=== PATIENT | male | born 1940 | race Caucasian/White ===

== ENCOUNTER 2019-06-16 07:35 | Observation (INO) | payer MEDICARE, BC ==
[2019-06-16] MEDS ORDERED: Sodium Chloride 0.9% 10 ML Syringe FLUSH PRN (07:45)
[2019-06-16] MEDS ORDERED: Sodium Chloride 0.9% 2.5 ML Syringe FLUSH PRN (07:45)
[2019-06-16] MEDS ORDERED: Aspirin 81 MG Tab.Chew PO ONE (07:49)
--- NOTE | 2019-06-16 07:49 | EDM.PDOC ---
ED HPI GENERAL MEDICAL PROBLEM - General Chief Complaint: Cardiovascular Problem Stated Complaint: POSSIBLE HEART ATTACK Time Seen by Provider: 06/16/19 07:39 Source of Information: Reports: Patient History Limitations: Reports: No Limitations - History of Present Illness INITIAL COMMENTS - FREE TEXT/NARRATIVE: History of present illness: []Patient has a history of an AZ 2 years ago with one stent placed in [place] this morning while sitting at the breakfast table sipping coffee with friends patient became sweaty and nauseous which is how he presented with his AZ 2 years ago. Review of systems: As per history of present illness and below otherwise all systems reviewed and negative. Past medical history: As per history of present illness and as reviewed below otherwise noncontributory. Surgical history: As per history of present illness and as reviewed below otherwise noncontributory. Social history: No reported history of drug or alcohol abuse. Family history: As per history of present illness and as reviewed below otherwise noncontributory. Physical exam: General: Well developed, well nourished in NAD HEENT: Atraumatic, normocephalic, pupils reactive, negative for conjunctival pallor or scleral icterus, mucous membranes moist, throat clear, neck supple, nontender, trachea midline. Lungs: Clear to auscultation, breath sounds equal bilaterally, chest nontender. Heart: S1S2, regular, negative for clicks, rubs, or JVD. Abdomen: NABS, Soft, nondistended, nontender. Negative for masses or hepatosplenomegaly. Negative for costovertebral tenderness. Pelvis: Stable nontender. Genitourinary: Deferred. Rectal: Deferred. Extremities: Atraumatic, negative for cords or calf pain. Neurovascular unremarkable. Neuro: Awake, alert, oriented. Cranial nerves II through XII unremarkable. Cerebellum unremarkable. Motor and sensory unremarkable throughout. Exam nonfocal. Skin:warm and dry Diagnostics: EKG, chest x-ray, CBC, chemistry, troponin Therapeutics: Aspirin given prior to arrival ED Course: Stable consulted hospitalist who will admit Impression: acute coronary syndrome Prescriptions: none Plan: Mid to hospitalist service rule out AZ actually Definitive disposition and diagnosis as appropriate pending reevaluation and review of above. chest Pain Score (Numeric/FACES): 0 - Related Data Allergies Allergy/AdvReac Type Severity Reaction Status Date / Time codeine Allergy Nausea Verified 06/16/19 10:58 wheat Allergy Other Verified 06/16/19 10:58 pain medications Allergy Confusion Uncoded 06/16/19 10:58 Home Meds: Home Meds Aspirin 81 mg PO DAILY 06/16/19 [History] Esomeprazole Magnesium [Nexium 24Hr] 20 mg PO DAILY 06/16/19 [History] Losartan Potassium 25 mg PO DAILY 06/16/19 [History] atorvaSTATin [Lipitor] 40 mg PO BEDTIME 06/16/19 [History] ED ROS GENERAL - Review of Systems Review Of Systems: See Below ED EXAM, GENERAL - Physical Exam Exam: See Below Course - Vital Signs Last Recorded V/S: Last Vital Signs Temp 98.9 F 06/16/19 12:00 Pulse 62 06/16/19 12:00 Resp 16 06/16/19 12:00 BP 107/63 06/16/19 12:00 Pulse Ox 98 06/16/19 12:00 - Orders/Labs/Meds Orders: Active Orders 24 hr Category Date Time Status Patient Status [ADT] Stat ADT 06/16/19 08:29 Active Cardiac Monitoring [RC] . DIRECTED Care 06/16/19 07:45 Active EKG Documentation Completion [RC] STAT Care 06/16/19 07:45 Active Sodium Chloride 0.9% [Saline Flush] Med 06/16/19 07:45 Active 10 ml FLUSH ASDIRECTED PRN Sodium Chloride 0.9% [Saline Flush] Med 06/16/19 07:45 Active 2.5 ml FLUSH ASDIRECTED PRN Saline Lock Insert [OM.PC] Stat Oth 06/16/19 07:45 Ordered Medication Orders Acetaminophen (Tylenol) 650 mg PO Q4H PRN PRN Reason: Pain/Fever Aspirin (Aspirin) 81 mg PO DAILY LIANA Atorvastatin Calcium (Lipitor) 40 mg PO BEDTIME LIANA Enoxaparin Sodium (Lovenox) 40 mg SUBCUT Q24H LIANA Last Admin: 06/16/19 11:14 Dose: 40 mg Sodium Chloride (Normal Saline) 1,000 mls @ 125 mls/hr IV ASDIRECTED LIANA Stop: 06/16/19 17:14 Last Admin: 06/16/19 11:13 Dose: 125 mls/hr Losartan Potassium (Cozaar) 25 mg PO DAILY LIANA Ondansetron HCl (Zofran) 4 mg IVPUSH Q4H PRN PRN Reason: Nausea/Vomiting Sodium Chloride (Saline Flush) 10 ml FLUSH ASDIRECTED PRN PRN Reason: Keep Vein Open Sodium Chloride (Saline Flush) 2.5 ml FLUSH ASDIRECTED PRN PRN Reason: Keep Vein Open Labs: Laboratory Tests 06/16/19 06/16/19 Range/Units 07:52 07:52 WBC 7.98 (4.0-11.0) K/uL RBC 4.18 L (4.50-5.90) M/uL Hgb 14.1 (13.0-17.0) g/dL Hct 41.5 (38.0-50.0) % MCV 99.3 H (80.0-98.0) fL MCH 33.7 H (27.0-32.0) pg MCHC 34.0 (31.0-37.0) g/dL RDW Std Deviation 46.8 (28.0-62.0) fl RDW Coeff of Adama 13 (11.0-15.0) % Plt Count 176 (150-400) K/uL MPV 9.50 (7.40-12.00) fL Neut % (Auto) 85.8 H (48.0-80.0) % Lymph % (Auto) 8.3 L (16.0-40.0) % [place] % (Auto) 5.5 (0.0-15.0) % Eos % (Auto) 0.3 (0.0-7.0) % Baso % (Auto) 0.1 (0.0-1.5) % Neut # (Auto) 6.9 H (1.4-5.7) K/uL Lymph # (Auto) 0.7 (0.6-2.4) K/uL [place] # (Auto) 0.4 (0.0-0.8) K/uL Eos # (Auto) 0.0 (0.0-0.7) K/uL Baso # (Auto) 0.0 (0.0-0.1) K/uL Nucleated RBC % 0.0 /100WBC Nucleated RBCs # 0 K/uL Sodium 133 L (136-148) mmol/L Potassium 4.1 (3.5-5.1) mmol/L Chloride 100 (98-107) mmol/L Carbon Dioxide 27.4 (21.0-32.0) mmol/L BUN 14 (7.0-18.0) mg/dL Creatinine 0.9 (0.8-1.3) mg/dL Est Cr Clr Drug Dosing 56.17 mL/min Estimated GFR (MDRD) > 60.0 ml/min Glucose 123 H (74-106) mg/dL Calcium 10.5 H (8.5-10.1) mg/dL Total Bilirubin 1.2 H (0.2-1.0) mg/dL AST 25 (15-37) IU/L ALT 30 (14-63) IU/L Alkaline Phosphatase 64 (46-116) U/L Troponin I < 0.050 (0.000-0.056) ng/mL Total Protein 6.4 (6.4-8.2) g/dL Albumin 3.6 (3.4-5.0) g/dL Globulin 2.8 (2.6-4.0) g/dL Albumin/Globulin Ratio 1.3 (0.9-1.6) Meds: Medications Generic Name Dose Route Start Last Admin Trade Name Freq PRN Reason Stop Dose Admin Acetaminophen 650 mg 06/16/19 09:04 Tylenol PO Q4H PRN Pain/Fever Aspirin 81 mg 06/17/19 09:00 Aspirin PO DAILY [facility] Atorvastatin Calcium 40 mg 06/16/19 21:00 Lipitor PO BEDTIME [facility] Enoxaparin Sodium 40 mg 06/16/19 11:00 06/16/19 11:14 Lovenox SUBCUT 40 mg Q24H LIANA Administration Sodium Chloride 1,000 mls @ 125 mls/hr 06/16/19 09:15 06/16/19 11:13 Normal Saline IV 06/16/19 17:14 125 mls/hr ASDIRECTED LIANA Administration Losartan Potassium 25 mg 06/17/19 21:00 Cozaar PO DAILY [facility] Ondansetron HCl 4 mg 06/16/19 09:04 Zofran IVPUSH Q4H PRN Nausea/Vomiting Sodium Chloride 10 ml 06/16/19 07:45 Saline Flush FLUSH ASDIRECTED PRN Keep Vein Open Sodium Chloride 2.5 ml 06/16/19 07:45 Saline Flush FLUSH ASDIRECTED PRN Keep Vein Open Discontinued Medications Generic Name Dose Route Start Last Admin Trade Name Freq PRN Reason Stop Dose Admin Aspirin 324 mg 06/16/19 07:49 06/16/19 07:57 Aspirin PO 06/16/19 07:50 Not Given ONETIME ONE Enoxaparin Sodium 40 mg 06/16/19 09:00 06/16/19 11:05 Lovenox SUBCUT Not Given Q24H [facility] Omeprazole 20 mg 06/18/19 09:00 Omeprazole PO DAILY LIANA Departure - Departure Time of Disposition: 16:58 Disposition: Refer to Observation Condition: Good Clinical Impression: Acute coronary syndrome - My Orders Last 24 Hours: My Active Orders 06/16/19 07:45 Cardiac Monitoring [RC] . DIRECTED EKG Documentation Completion [RC] STAT Sodium Chloride 0.9% [Saline Flush] 10 ml FLUSH ASDIRECTED PRN Sodium Chloride 0.9% [Saline Flush] 2.5 ml FLUSH ASDIRECTED PRN Saline Lock Insert [OM.PC] Stat 06/16/19 08:29 Patient Status [ADT] Stat - Assessment/Plan Last 24 Hours: My Active Orders 06/16/19 07:45 Cardiac Monitoring [RC] . DIRECTED EKG Documentation Completion [RC] STAT Sodium Chloride 0.9% [Saline Flush] 10 ml FLUSH ASDIRECTED PRN Sodium Chloride 0.9% [Saline Flush] 2.5 ml FLUSH ASDIRECTED PRN Saline Lock Insert [OM.PC] Stat 06/16/19 08:29 Patient Status [ADT] Stat
[2019-06-16 08:24] LABS: BLOOD UREA NITROGEN,BUN 14 mg/dL (7.0-18.0); CARBON DIOXIDE,CO2 27.4 mmol/L (21.0-32.0); CHLORIDE,CL 100 mmol/L (98-107); GLUCOSE RANDOM 123 mg/dL (74-106); POTASSIUM,K 4.1 mmol/L (3.5-5.1); SODIUM,NA 133 mmol/L (136-148)
--- NOTE | 2019-06-16 08:53 | CR ---
INDICATION: Pain, shortness of breath. TECHNIQUE: Chest 1 view COMPARISON: None. FINDINGS: The extreme lung apices are obscured by artifact. Within these limitations, no focal consolidation, pleural effusion, or pneumothorax is seen. Normal heart size and pulmonary vascularity. Tortuous aorta. IMPRESSION: No acute cardiopulmonary findings. Dictated by Gabriella Bella MD @ Jun 16 2019 8:49AM Signed by Dr. Gabriella Bella @ Jun 16 2019 8:50AM
--- NOTE | 2019-06-16 08:59 | PCM.HP.2 ---
H&P History of Present Illness - General Date of Service: 06/16/19 Admit Problem/Dx: Admission Diagnosis/Problem Admission Diagnosis/Problem Chest pain - History of Present Illness Initial Comments - Free Text/Narative: The patient is a 79 year old male who presents today with episode of diaphoresis and nausea while eating breakfast with friends. He reports NH with stent 2 years ago that presented with the same symptoms. He denies chest pain, shortness of breath, abdominal pain, diarrhea, or edema. He no longer feels diaphoretic or nauseous. Last appt with cardiology was in [place] in December. No changes were made to his management at that time. He reports he has never had a stress test. He is a non smoker. He has a positive cardiac history, father had first NH at age 56 and from it at 72. mother from NH at 83. In the ER, work up showed no white count, anemia. He was slightly hyponatremic with normal kidney function. Initial trop was negative. CXR showed no acute cardiopulmonary process. EKG showed normal sinus rhythm without ST elevation. He was given full dose aspirin in the ER. PCP- Dr. Hidalgo - Related Data Allergies/Adverse Reactions: Allergies Allergy/AdvReac Type Severity Reaction Status Date / Time codeine Allergy Nausea Verified 06/16/19 10:58 wheat Allergy Other Verified 06/16/19 10:58 pain medications Allergy Confusion Uncoded 06/16/19 10:58 Home Medications: Home Meds Aspirin 81 mg PO DAILY 06/16/19 [History] Esomeprazole Magnesium [Nexium 24Hr] 20 mg PO DAILY 06/16/19 [History] Losartan Potassium 25 mg PO DAILY 06/16/19 [History] atorvaSTATin [Lipitor] 40 mg PO BEDTIME 06/16/19 [History] Past Medical History HEENT History: Reports: Hard of Hearing Other HEENT History: hearing aids Cardiovascular History: Reports: NH Other Cardiovascular History: NH with stents in 2017 Respiratory History: Reports: None Gastrointestinal History: Reports: GERD Genitourinary History: Reports: None Musculoskeletal History: Reports: None Psychiatric History: Reports: None Endocrine/Metabolic History: Reports: None Hematologic History: Reports: None Immunologic History: Reports: None - Infectious Disease History Infectious Disease History: Reports: Chicken Pox, Measles, Mumps - Past Surgical History Cardiovascular Surgical History: Reports: Coronary Artery Stent GI Surgical History: Reports: Hernia Repair/Other Social & Family History - Family History Family Medical History: Noncontributory - Tobacco Use Smoking Status *Q: Never Smoker Second Hand Smoke Exposure: No - Alcohol Use Days Per Week of Alcohol Use: 7 Number of Drinks Per Day: 2 Total Drinks Per Week: 14 - Recreational Drug Use Recreational Drug Use: No H&P Review of Systems - Review of Systems: Review Of Systems: See Below General: Reports: Diaphoresis. Denies: Fever, Chills HEENT: Reports: No Symptoms Pulmonary: Reports: No Symptoms Cardiovascular: Reports: No Symptoms Gastrointestinal: Reports: Nausea. Denies: Abdominal Pain, Constipation, Diarrhea, Vomiting Genitourinary: Reports: No Symptoms Musculoskeletal: Reports: No Symptoms Skin: Reports: No Symptoms Psychiatric: Reports: No Symptoms Neurological: Reports: No Symptoms Hematologic/Lymphatic: Reports: No Symptoms Immunologic: Reports: No Symptoms Exam - Exam Exam: See Below - Vital Signs Vital Signs: Last Vital Signs Temp 97.1 F 06/16/19 07:35 Pulse 51 L 06/16/19 08:44 Resp 18 06/16/19 08:44 BP 134/61 06/16/19 08:44 Pulse Ox 100 06/16/19 08:44 Weight: 61.689 kg - Exam General: Alert, Oriented, Cooperative HEENT: Conjunctiva Clear, EOMI, Mucosa Moist & [place], Posterior Pharynx Clear, Pupils Equal, Pupils Reactive Neck: Supple, Trachea Midline Lungs: Clear to Auscultation, Normal Respiratory Effort Cardiovascular: Regular Rate, Regular Rhythm GI/Abdominal Exam: Normal Bowel Sounds, Soft, Non-Tender, No Distention Extremities: No Pedal Edema Skin: Warm, Dry, Intact Psychiatric: Alert, Normal Affect, Normal Mood - Patient Data Lab Results Last 24 hrs: Laboratory Results - last 24 hr 06/16/19 06/16/19 Range/Units 07:52 07:52 WBC 7.98 (4.0-11.0) K/uL RBC 4.18 L (4.50-5.90) M/uL Hgb 14.1 (13.0-17.0) g/dL Hct 41.5 (38.0-50.0) % MCV 99.3 H (80.0-98.0) fL MCH 33.7 H (27.0-32.0) pg MCHC 34.0 (31.0-37.0) g/dL RDW Std Deviation 46.8 (28.0-62.0) fl RDW Coeff of Adama 13 (11.0-15.0) % Plt Count 176 (150-400) K/uL MPV 9.50 (7.40-12.00) fL Neut % (Auto) 85.8 H (48.0-80.0) % Lymph % (Auto) 8.3 L (16.0-40.0) % [place] % (Auto) 5.5 (0.0-15.0) % Eos % (Auto) 0.3 (0.0-7.0) % Baso % (Auto) 0.1 (0.0-1.5) % Neut # (Auto) 6.9 H (1.4-5.7) K/uL Lymph # (Auto) 0.7 (0.6-2.4) K/uL [place] # (Auto) 0.4 (0.0-0.8) K/uL Eos # (Auto) 0.0 (0.0-0.7) K/uL Baso # (Auto) 0.0 (0.0-0.1) K/uL Nucleated RBC % 0.0 /100WBC Nucleated RBCs # 0 K/uL Sodium 133 L (136-148) mmol/L Potassium 4.1 (3.5-5.1) mmol/L Chloride 100 (98-107) mmol/L Carbon Dioxide 27.4 (21.0-32.0) mmol/L BUN 14 (7.0-18.0) mg/dL Creatinine 0.9 (0.8-1.3) mg/dL Est Cr Clr Drug Dosing 56.17 mL/min Estimated GFR (MDRD) > 60.0 ml/min Glucose 123 H (74-106) mg/dL Calcium 10.5 H (8.5-10.1) mg/dL Total Bilirubin 1.2 H (0.2-1.0) mg/dL AST 25 (15-37) IU/L ALT 30 (14-63) IU/L Alkaline Phosphatase 64 (46-116) U/L Troponin I < 0.050 (0.000-0.056) ng/mL Total Protein 6.4 (6.4-8.2) g/dL Albumin 3.6 (3.4-5.0) g/dL Globulin 2.8 (2.6-4.0) g/dL Albumin/Globulin Ratio 1.3 (0.9-1.6) Result Diagrams: 06/16/19 07:52 06/16/19 07:52 Problem List Initiated/Reviewed/Updated: Yes Orders Last 24hrs: Active Orders 24 hr Category Date Time Status Patient Status [ADT] Stat ADT 06/16/19 08:29 Ordered Cardiac Monitoring [RC] . DIRECTED Care 06/16/19 07:45 Active EKG Documentation Completion [RC] STAT Care 06/16/19 07:45 Active Intake and Output [RC] ASDIRECTED Care 06/16/19 08:52 Ordered Oxygen Therapy, ED [RC] ASDIRECTED Care 06/16/19 07:45 Active Telemetry Monitoring [Cardiac Monitoring] [RC] . Care 06/16/19 08:52 Ordered DIRECTED Vital Signs [RC] PER UNIT ROUTINE Care 06/16/19 08:52 Ordered Heart Healthy Diet [DIET] Diet 06/16/19 Lunch Ordered TROPONIN I [CHEM] Timed Lab 06/16/19 14:00 Ordered TROPONIN I [CHEM] Timed Lab 06/16/19 20:00 Ordered Enoxaparin [Lovenox] Med 06/16/19 09:00 Ordered 40 mg SUBCUT Q24H Sodium Chloride 0.9% [Saline Flush] Med 06/16/19 07:45 Active 10 ml FLUSH ASDIRECTED PRN Sodium Chloride 0.9% [Saline Flush] Med 06/16/19 07:45 Active 2.5 ml FLUSH ASDIRECTED PRN Saline Lock Insert [OM.PC] Stat Oth 06/16/19 07:45 Ordered Resuscitation Status Stat Resus Stat 06/16/19 08:52 Ordered Medication Orders Enoxaparin Sodium (Lovenox) 40 mg SUBCUT Q24H LIANA Sodium Chloride (Saline Flush) 10 ml FLUSH ASDIRECTED PRN PRN Reason: Keep Vein Open Sodium Chloride (Saline Flush) 2.5 ml FLUSH ASDIRECTED PRN PRN Reason: Keep Vein Open Assessment/Plan Comment:: 1. Admit for observation 2. Code status- Full 3. Vitals per routine 4. I/Os per routine 5. Diet- heart healthy 6. DVT prophylaxis with Lovenox 7. Diaphoresis and nausea in patient with hx of NH- trend troponins, monitor on telemetry, continue home medications 8. Hyponatremia- give 1 L of IVF, recheck in AM 9. Bradycardia- monitor on telemetry, not on any medications that would slow his heart. Reviewed PCP records and his HR runs 50-60.
[2019-06-16] MEDS ORDERED: Enoxaparin 40 MG/0.4 ML Syringe SUBCUT SCH (09:00)
[2019-06-16] MEDS ORDERED: Ondansetron 4 MG/2 ML SDV IVPUSH PRN (09:04)
[2019-06-16] MEDS ORDERED: Acetaminophen 325 MG Tab PO PRN (09:04)
[2019-06-16] MEDS ORDERED: Sodium Chloride 0.9% 1,000 ML IV SCH (09:15)
[2019-06-16] MEDS: Enoxaparin 40 MG/0.4 ML Syringe SUBCUT SCH (11:14)
[2019-06-16] MEDS ORDERED: atorvaSTATin 40 MG Tab PO SCH (21:00)
[2019-06-17 06:44] LABS: BLOOD UREA NITROGEN,BUN 12 mg/dL (7.0-18.0); CARBON DIOXIDE,CO2 26.3 mmol/L (21.0-32.0); CHLORIDE,CL 104 mmol/L (98-107); GLUCOSE RANDOM 101 mg/dL (74-106); POTASSIUM,K 4.6 mmol/L (3.5-5.1); SODIUM,NA 138 mmol/L (136-148)
--- NOTE | 2019-06-17 07:44 | PCM.DCSUM1 ---
<Ana Paula Lin - Last Filed: 06/17/19 10:36> Discharge Summary - Hospital Course HPI Initial Comments: Admission Date: 06/16/19 Discharge Date: 06/17/19 Admission Diagnosis: 1. Diaphoresis/nausea with hx of SD 2. Bradycardia 3. Hyponatremia Discharge Diagnosis: 1. Diaphoresis/nausea with hx of SD- resolved 2. Bradycardia- stable 3. Hyponatremia- resolved Procedures: None Consults: None Hospital Course: The patient is a 79 year old male who presents today with episode of diaphoresis and nausea while eating breakfast with friends. He reports SD with stent 2 years ago that presented with the same symptoms. He denies chest pain, shortness of breath, abdominal pain, diarrhea, or edema. He no longer feels diaphoretic or nauseous. Last appt with cardiology was in [place] in December. No changes were made to his management at that time. He reports he has never had a stress test. In the ER, work up showed no white count , anemia. He was slightly hyponatremic with normal kidney function. Initial trop was negative. CXR showed no acute cardiopulmonary process. EKG showed normal sinus rhythm without ST elevation. He was given full dose aspirin in the ER. Was admitted to medical surgical consult. His troponin were trended and negative x 3 with no further episodes of his symptoms or chest pain. Monitored on telemetry and he remained in sinus rhythm and sinus bradycardia which is his normal state. He was given 1 L of fluid and his hyponatremia resolved. By day of discharge patient stated he felt good and was ready to go home. Disposition: Home Discharge Condition: vitals stable, tolerating oral diet, ambulating without difficulty, symptom improvement Discharge Instructions: heart healthy diet as tolerated, activity as tolerated, take medications as prescribed. Symptoms to report to physician include fever/ chills, chest pain, shortness of breath, abdominal pain, erythema, drainage/ discharge, or not improving as expected. Discharge Medications: Aspirin 81 mg PO DAILY Esomeprazole Magnesium [Nexium 24Hr] 20 mg PO DAILY Losartan Potassium 25 mg PO DAILY atorvaSTATin [Lipitor] 40 mg PO BEDTIME Follow-up: 1. PCP- Dr. Hidalgo 2. Cardiology- Dr. Borrego 3. Outpatient stress test - Discharge Data Discharge Date: 06/17/19 Discharge Disposition: Home, Self-Care 01 Condition: Stable - Referral to Home Health Primary Care Physician: PCP None - Discharge Plan Home Medications: Home Meds Aspirin 81 mg PO DAILY 06/16/19 [History] Esomeprazole Magnesium [Nexium 24Hr] 20 mg PO DAILY 06/16/19 [History] Losartan Potassium 25 mg PO DAILY 06/16/19 [History] atorvaSTATin [Lipitor] 40 mg PO BEDTIME 06/16/19 [History] Patient Handouts: Acute Coronary Syndrome Referrals: Babar Swanson MD [Physician] - 07/21/19 1:00 pm Fransico Hidalgo MD [Physician] - 07/02/19 11:15 am - Discharge Summary/Plan Comment DC Time >30 min.: No - Patient Data Vitals - Most Recent: Last Vital Signs Temp 98.2 F 06/17/19 07:42 Pulse 52 L 06/17/19 07:42 Resp 16 06/17/19 07:42 BP 127/60 06/17/19 07:42 Pulse Ox 97 06/17/19 07:42 Weight - Most Recent: 61.689 kg I&O - Last 24 hours: Intake & Output 06/16/19 06/17/19 06/17/19 22:59 06:59 14:59 Intake Total 1350 1090 Output Total 850 1250 Balance 500 -160 Lab Results - Last 24 hrs: Laboratory Results - last 24 hr 06/16/19 06/16/19 06/16/19 Range/Units 07:52 07:52 14:00 WBC 7.98 (4.0-11.0) K/uL RBC 4.18 L (4.50-5.90) M/uL Hgb 14.1 (13.0-17.0) g/dL Hct 41.5 (38.0-50.0) % MCV 99.3 H (80.0-98.0) fL MCH 33.7 H (27.0-32.0) pg MCHC 34.0 (31.0-37.0) g/dL RDW Std Deviation 46.8 (28.0-62.0) fl RDW Coeff of Adama 13 (11.0-15.0) % Plt Count 176 (150-400) K/uL MPV 9.50 (7.40-12.00) fL Neut % (Auto) 85.8 H (48.0-80.0) % Lymph % (Auto) 8.3 L (16.0-40.0) % [place] % (Auto) 5.5 (0.0-15.0) % Eos % (Auto) 0.3 (0.0-7.0) % Baso % (Auto) 0.1 (0.0-1.5) % Neut # (Auto) 6.9 H (1.4-5.7) K/uL Lymph # (Auto) 0.7 (0.6-2.4) K/uL [place] # (Auto) 0.4 (0.0-0.8) K/uL Eos # (Auto) 0.0 (0.0-0.7) K/uL Baso # (Auto) 0.0 (0.0-0.1) K/uL Nucleated RBC % 0.0 /100WBC Nucleated RBCs # 0 K/uL Sodium 133 L (136-148) mmol/L Potassium 4.1 (3.5-5.1) mmol/L Chloride 100 (98-107) mmol/L Carbon Dioxide 27.4 (21.0-32.0) mmol/L BUN 14 (7.0-18.0) mg/dL Creatinine 0.9 (0.8-1.3) mg/dL Est Cr Clr Drug Dosing 56.17 mL/min Estimated GFR (MDRD) > 60.0 ml/min Glucose 123 H (74-106) mg/dL Calcium 10.5 H (8.5-10.1) mg/dL Total Bilirubin 1.2 H (0.2-1.0) mg/dL AST 25 (15-37) IU/L ALT 30 (14-63) IU/L Alkaline Phosphatase 64 (46-116) U/L Troponin I < 0.050 < 0.050 (0.000-0.056) ng/mL Total Protein 6.4 (6.4-8.2) g/dL Albumin 3.6 (3.4-5.0) g/dL Globulin 2.8 (2.6-4.0) g/dL Albumin/Globulin Ratio 1.3 (0.9-1.6) 06/16/19 06/17/19 06/17/19 Range/Units 20:09 05:58 05:58 WBC 6.00 (4.0-11.0) K/uL RBC 4.10 L (4.50-5.90) M/uL Hgb 13.4 (13.0-17.0) g/dL Hct 41.0 (38.0-50.0) % MCV 100.0 H (80.0-98.0) fL MCH 32.7 H (27.0-32.0) pg MCHC 32.7 (31.0-37.0) g/dL RDW Std Deviation 47.4 (28.0-62.0) fl RDW Coeff of Adama 13 (11.0-15.0) % Plt Count 154 (150-400) K/uL MPV 9.40 (7.40-12.00) fL Neut % (Auto) 67.8 (48.0-80.0) % Lymph % (Auto) 21.2 (16.0-40.0) % [place] % (Auto) 9.7 (0.0-15.0) % Eos % (Auto) 1.0 (0.0-7.0) % Baso % (Auto) 0.3 (0.0-1.5) % Neut # (Auto) 4.1 (1.4-5.7) K/uL Lymph # (Auto) 1.3 (0.6-2.4) K/uL [place] # (Auto) 0.6 (0.0-0.8) K/uL Eos # (Auto) 0.1 (0.0-0.7) K/uL Baso # (Auto) 0.0 (0.0-0.1) K/uL Nucleated RBC % 0.0 /100WBC Nucleated RBCs # 0 K/uL Sodium 138 (136-148) mmol/L Potassium 4.6 (3.5-5.1) mmol/L Chloride 104 (98-107) mmol/L Carbon Dioxide 26.3 (21.0-32.0) mmol/L BUN 12 (7.0-18.0) mg/dL Creatinine 1.0 (0.8-1.3) mg/dL Est Cr Clr Drug Dosing 50.55 mL/min Estimated GFR (MDRD) > 60.0 ml/min Glucose 101 (74-106) mg/dL Calcium 9.1 (8.5-10.1) mg/dL Total Bilirubin (0.2-1.0) mg/dL AST (15-37) IU/L ALT (14-63) IU/L Alkaline Phosphatase (46-116) U/L Troponin I < 0.050 (0.000-0.056) ng/mL Total Protein (6.4-8.2) g/dL Albumin (3.4-5.0) g/dL Globulin (2.6-4.0) g/dL Albumin/Globulin Ratio (0.9-1.6) Med Orders - Current: Current Medications Acetaminophen (Tylenol) 650 mg PO Q4H PRN PRN Reason: Pain/Fever Aspirin (Aspirin) 81 mg PO DAILY [facility] Atorvastatin Calcium (Lipitor) 40 mg PO BEDTIME [facility] Last Admin: 06/16/19 20:32 Dose: 40 mg Enoxaparin Sodium (Lovenox) 40 mg SUBCUT Q24H [facility] Last Admin: 06/16/19 11:14 Dose: 40 mg Losartan Potassium (Cozaar) 25 mg PO DAILY [facility] Ondansetron HCl (Zofran) 4 mg IVPUSH Q4H PRN PRN Reason: Nausea/Vomiting Esomeprazole 20mg 1 each PO DAILY [facility] Last Admin: 06/16/19 17:39 Dose: 1 each Sodium Chloride (Saline Flush) 10 ml FLUSH ASDIRECTED PRN PRN Reason: Keep Vein Open Sodium Chloride (Saline Flush) 2.5 ml FLUSH ASDIRECTED PRN PRN Reason: Keep Vein Open Discontinued Medications Aspirin (Aspirin) 324 mg PO ONETIME ONE Stop: 06/16/19 07:50 Last Admin: 06/16/19 07:57 Dose: Not Given Enoxaparin Sodium (Lovenox) 40 mg SUBCUT Q24H [facility] Last Admin: 06/16/19 11:05 Dose: Not Given Sodium Chloride (Normal Saline) 1,000 mls @ 125 mls/hr IV ASDIRECTED [facility] Stop: 06/16/19 17:14 Last Admin: 06/16/19 11:13 Dose: 125 mls/hr Omeprazole (Omeprazole) 20 mg PO DAILY [facility] <Eliel Stanley - Last Filed: 06/18/19 18:56> Discharge Summary - Referral to Home Health Primary Care Physician: PCP None - Patient Data Vitals - Most Recent: Last Vital Signs Temp 36.5 C 06/17/19 12:00 Pulse 78 06/17/19 12:00 Resp 16 06/17/19 12:00 BP 126/66 06/17/19 12:00 Pulse Ox 96 06/17/19 12:00 Med Orders - Current: Current Medications Discontinued Medications Acetaminophen (Tylenol) 650 mg PO Q4H PRN PRN Reason: Pain/Fever Aspirin (Aspirin) 324 mg PO ONETIME ONE Stop: 06/16/19 07:50 Last Admin: 06/16/19 07:57 Dose: Not Given Aspirin (Aspirin) 81 mg PO DAILY [facility] Last Admin: 06/17/19 09:30 Dose: 81 mg Atorvastatin Calcium (Lipitor) 40 mg PO BEDTIME [facility] Last Admin: 06/16/19 20:32 Dose: 40 mg Enoxaparin Sodium (Lovenox) 40 mg SUBCUT Q24H [facility] Last Admin: 06/16/19 11:05 Dose: Not Given Enoxaparin Sodium (Lovenox) 40 mg SUBCUT Q24H [facility] Last Admin: 06/17/19 12:23 Dose: Not Given Sodium Chloride (Normal Saline) 1,000 mls @ 125 mls/hr IV ASDIRECTED [facility] Stop: 06/16/19 17:14 Last Admin: 06/16/19 11:13 Dose: 125 mls/hr Losartan Potassium (Cozaar) 25 mg PO DAILY [facility] Omeprazole (Omeprazole) 20 mg PO DAILY [facility] Ondansetron HCl (Zofran) 4 mg IVPUSH Q4H PRN PRN Reason: Nausea/Vomiting Esomeprazole 20mg 1 each PO DAILY [facility] Last Admin: 06/17/19 09:30 Dose: 1 each Sodium Chloride (Saline Flush) 10 ml FLUSH ASDIRECTED PRN PRN Reason: Keep Vein Open Sodium Chloride (Saline Flush) 2.5 ml FLUSH ASDIRECTED PRN PRN Reason: Keep Vein Open - Free Text/Narrative Note: I have seen and evaluated the patient with the resident. I have discussed findings and treatment plan with the resident. I agree with the assessment and plan outlined in the following note.
[2019-06-17] MEDS ORDERED: Aspirin 81 MG Tab.Chew PO SCH (09:00)
[2019-06-17] MEDS: Enoxaparin 40 MG/0.4 ML Syringe SUBCUT SCH (12:23)
[2019-06-17] MEDS ORDERED: Losartan 50 MG Tab PO SCH (21:00)
[2019-06-18] MEDS ORDERED: Omeprazole 20 MG Cap.CR PO SCH (09:00)
== END 2019-06-17 11:59 | disposition home or self-care (01) ==
LOC: MW.ED 07:35 → MW.MS 08:40
PROVIDERS: ADMIT Internal Medicine; ATTEND Internal Medicine
DX: R61 Generalized hyperhidrosis (principal); R11.0 Nausea; I25.2 Old myocardial infarction; K21.9 Gastro-esophageal reflux disease without esophagitis; E87.1 Hypo-osmolality and hyponatremia; R00.1 Bradycardia, unspecified; Z88.5 Allergy status to narcotic agent; Z91.018 Allergy to other foods; Z88.8 Allergy status to other drugs, medicaments and biological substances; Z79.82 Long term (current) use of aspirin; Z79.899 Other long term (current) drug therapy
CPT/HCPCS: 36415; 71045; 80048; 80053; 84484; 85025; 93005; 96372; 99285; A9270; G0378; J1650; J7040

== ENCOUNTER 2025-03-07 12:36 | Emergency (ER) | payer MEDICARE, BC | END 2025-03-07 14:03 | disposition home or self-care (01) | LOC: MW.ED 12:36 | DX: S49.91XA Unspecified injury of right shoulder and upper arm, initial encounter (principal); I25.2 Old myocardial infarction; K21.9 Gastro-esophageal reflux disease without esophagitis; Z75.3 Unavailability and inaccessibility of health-care facilities; Z88.5 Allergy status to narcotic agent; Z91.018 Allergy to other foods; Z88.8 Allergy status to other drugs, medicaments and biological substances; Z79.82 Long term (current) use of aspirin; Z79.899 Other long term (current) drug therapy; X50.1XXA Overexertion from prolonged static or awkward postures, initial encounter; Y93.89 Activity, other specified | CPT/HCPCS: 73030-26-RT; 73030-RT; 99283 ==